=== PATIENT | female | born 1980 | race Asian ===

== ENCOUNTER 2023-03-15 07:59 | Outpatient (CLI) | payer OTHER ==
[2023-03-15 12:29] LABS: BASOPHILS # (AUTO) 0.1 10^3/uL (0.0-0.1); EOSINOPHILS # (AUTO) 0.1 10^3/uL (0.0-0.7); EOSINOPHILS % (AUTO) 1.9 %; HGB - HEMOGLOBIN 13.6 g/dL (12.0-16.0); LYMPHOCYTES % (AUTO) 38.7 %; MEAN CORPUSCULAR HEMOGLOBIN 30.4 pg (27.0-31.0); MEAN CORPUSCULAR HGB CONC 33.2 g/dL (32.0-36.0); MEAN CORPUSCULAR VOLUME 91.7 fL (81.0-99.0); MEAN PLATELET VOLUME 12.2 fL (7.9-10.8); MONOCYTES # (AUTO) 0.5 10^3/uL (0.0-1.0); MONOCYTES % (AUTO) 9.1 %; NEUTROPHILS # (AUTO) 2.5 10^3/uL (1.5-6.6); NEUTROPHILS % (AUTO) 49.1 %; PLT - PLATELET COUNT 195 10^3/uL (130-450); RED BLOOD COUNT 4.47 10^6/uL (4.20-5.40); RED CELL DISTRIBUTION WIDTH 12.7 % (12.0-15.0); WHITE BLOOD COUNT 5.1 x10^3/uL (4.8-10.8)
[2023-03-15 12:59] LABS: THYROID STIMULATING HORMONE 2.51 uIU/mL (0.34-5.60)
[2023-03-15 13:04] LABS: ALBUMIN 4.2 g/dL (3.2-5.5); ALBUMIN/GLOBULIN RATIO 1.4 (1.0-2.2); BILIRUBIN,TOTAL 0.7 mg/dL (0.2-1.0); CALCIUM 8.9 mg/dL (8.5-10.3); CREATININE 0.8 mg/dL (0.4-1.0); POTASSIUM 4.1 mmol/L (3.5-5.0); TOTAL PROTEIN 7.2 g/dL (6.7-8.2)
[2023-03-15 13:06] LABS: FERRITIN 59.6 ng/mL (11.0-306.8)
== END 2023-03-15 08:00 | disposition home or self-care (01) ==
LOC: LAB.N 07:59
PROVIDERS: ATTEND Physician Assistant
DX: Z00.00 Encounter for general adult medical examination without abnormal findings (principal); K13.0 Diseases of lips
CPT/HCPCS: 36415; 80053; 82607; 82728; 83540; 84443; 84466; 85025

== ENCOUNTER 2023-10-01 18:45 | Emergency (ER) | payer OTHER ==
[2023-10-01 19:02] VITALS: O2SAT 100
--- NOTE | 2023-10-01 20:19 | ED Physician Documentation ---
History of Present Illness - Stated complaint Stated Complaint: SOA,CHEST PX - Chief complaint Chief Complaint: Resp - Additonal information Additional information: 43-year-old female presents emergency department for evaluation of cough sore throat bilateral ear pain. Patient states 2 weeks ago she tested positive for COVID-19. She thought she was getting better until over the weekend she has developed new cough with a sore throat. Reports dark brown phlegm. She also reports that she wakes up in the middle of the night and feels her heart racing. Her has reported that she has been snoring. Patient has no history of hypertension or diabetes. No exertional chest pain or chest discomfort. She does have a history of a provoked DVT in the right leg after knee surgery and air travel. Not currently anticoagulated. Review of Systems Constitutional: denies: Fever Ears: reports: Ear pain Nose: reports: Congestion Throat: reports: Sore throat Cardiac: reports: Chest pain / pressure Respiratory: reports: Cough. 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 : None HEENT: None Psych: None Musculoskeletal: None Derm: None - Past Surgical History Past Surgical History: Yes - Present Medications Home Medications: Ambulatory Orders Medication Instructions Recorded Confirmed No Known Home Medications 10/01/23 10/01/23 - Allergies Allergies/Adverse Reactions: Allergies Allergy/AdvReac Type Severity Reaction Status Date / Time No Known Drug Allergies Allergy Verified 10/01/23 18:50 - Social History Does the pt smoke?: No Smoking Status: Never smoker Does the pt drink ETOH?: Yes Does the pt have substance abuse?: No - Immunizations Immunizations are current?: Yes PD ED PE NORMAL - General General: Alert and oriented X 3, No acute distress, Well developed/nourished - HEENT HEENT: Atraumatic, Ears normal, Moist mucous membranes, Pharynx benign (No posterior oropharynx erythema or exudate. Uvula is midline. No soft palate asymmetry or swelling. Normal phonation normal swallow. No trismus.) - Neck Neck: Supple, no meningeal sign - Cardiac Cardiac: RRR, No murmur - Respiratory Respiratory: No respiratory distress, Clear bilaterally - Abdomen Abdomen: Normal bowel sounds, Soft, Non tender, Non distended - Derm Derm: Normal color, Warm and dry, No rash - Extremities Extremities: No deformity Results - Vitals Vitals: Vital Signs - 24 hr 10/01/23 18:53 Temperature 36.8 C Heart Rate 75 Respiratory 18 Rate Blood Pressure 121/79 O2 Saturation 100 Oxygen O2 Source Room air - EKG (time done) 1900 EKG releavant findings:: EKG personally interpreted by author of this note. Relevant findings are: Rate: Rate (enter#) (65) Rhythm: NSR [place]: Normal Intervals: Normal SC. No: Prolonged QT QRS: Normal Ischemia: Normal ST segments Compare to prior EKG: Old EKG unavailable Computer interpretation: Agree with computer - Labs Labs: Laboratory Tests 10/01/23 20:14 Group A Strep Rapid Negative - Rads (name of study) cxr Relevant Findings:: Final report received (No acute cardiopulmonary process.) PD Medical Decision Making - ED course Complexity details: reviewed results, d/w patient ED course: 43-year-old female presents emergency department for evaluation of new onset sore throat and bilateral ear pain. This follows COVID infection about 2 weeks ago. She stated over the course the time her cough is not fully resolved and she has some dark brown sputum. She also reports that at night she wakes up with a racing heart and chest pressure and palpitations. She is mostly concerned that she could have pneumonia or an inner ear infection. On presentation the emergency department she is alert very well-appearing. Unremarkable vitals. No hypoxia. 2 view chest x-ray is interpreted by the radiologist shows no findings of pneumonia, pneumothorax or pleural effusion. Her ENT exam was also benign without any findings suggest acute otitis media or strep. A rapid strep test was negative. I am clinically I suspect that she has a superimposed secondary viral infection after her recent COVID infection. I have encouraged routine conservative management at home. Given an unremarkable twelve-lead EKG and several weeks of symptoms I do not feel that the history and exam is consistent with ACS. Though she has a history of a DVT in the right leg that was provoked after knee injury and an air flight, by Wells criteria she is considered low risk for PE. At this time patient is feeling comfortable with discharge home given that conservative care measures di scussed. We discussed the usual emergent return precautions. Departure - Departure Disposition: Home, Self Care Clinical Impression: Sore throat, Pressure in chest Ear pain Qualifiers: Laterality: bilateral Qualified Code(s): H92.03 - Otalgia, bilateral Cough Qualifiers: Cough type: acute Qualified Code(s): R05.1 - Acute cough Condition: Stable Record reviewed to determine appropriate education?: Yes Comments: You are seen today in the emergency department because you have developed a new sore throat and pain in both your ears. You have also had persistent cough and some pressure in your chest especially at night. You wake up coughing and have a rapid heart rate. Your chest x-ray today did not show any findings to suggest pneumonia. The exam of your throat and ears also showed no signs of infection. Your rapid strep testing was negative. The twelve-lead EKG that was completed on you today also was entirely normal. It is most likely that you have a viral upper respiratory infection causing the new sore throat and ear pain. In general I recommend that you take ibuprofen 600 mg with food for the discomfort. Stay well-hydrated. I do not feel he would benefit from antibiotics given the normal chest x-ray. If at any point you feel that your symptoms are worsening, you develop new fevers, have bright red bloody sputum or any fainting episodes and please return to the ER for repeat evaluation. Forms: PCP List
--- NOTE | 2023-10-01 20:20 | XRAY Report ---
PROCEDURE: Chest 2 View X-Ray INDICATIONS: SOA/cough TECHNIQUE: 2 views of the chest were acquired. COMPARISON: None. FINDINGS: Surgical changes and devices: None. Lungs and pleura: No pleural effusions or pneumothorax. Lungs are clear. Mediastinum: Mediastinal contours appear normal. Heart size is normal. Bones and chest wall: No suspicious bony lesions. Overlying soft tissues appear unremarkable. IMPRESSION: No acute cardiopulmonary process. Reviewed by: Everardo Lennon on 10/01/2023 8:18 PM [facility] Approved by: Everardo Lennon on 10/01/2023 8:18 PM [facility] Station ID: [id number]
[2023-10-01 20:36] LABS: RAPID STREP SCREEN Negative (Negative)
[2023-10-01 21:14] VITALS: BP 120/72
== END 2023-10-01 21:09 | disposition home or self-care (01) ==
LOC: ED 18:45
DX: J02.9 Acute pharyngitis, unspecified (principal); R07.89 Other chest pain; H92.03 Otalgia, bilateral; R05.1 Acute cough; R00.0 Tachycardia, unspecified
CPT/HCPCS: 87070; 87430; 93005; 99283; 99284

== ENCOUNTER 2024-02-24 07:32 | Outpatient (CLI) | payer OTHER ==
[2024-02-24 12:14] LABS: BASOPHILS # (AUTO) 0.1 10^3/uL (0.0-0.1); BASOPHILS % (AUTO) 1.2 %; EOSINOPHILS # (AUTO) 0.1 10^3/uL (0.0-0.7); EOSINOPHILS % (AUTO) 2.1 %; HCT - HEMATOCRIT 40.8 % (37.0-47.0); HGB - HEMOGLOBIN 13.6 g/dL (12.0-16.0); LYMPHOCYTES % (AUTO) 37.9 %; MEAN CORPUSCULAR HEMOGLOBIN 31.1 pg (27.0-31.0); MEAN CORPUSCULAR HGB CONC 33.3 g/dL (32.0-36.0); MEAN CORPUSCULAR VOLUME 93.2 fL (81.0-99.0); MEAN PLATELET VOLUME 11.7 fL (7.9-10.8); MONOCYTES # (AUTO) 0.6 10^3/uL (0.0-1.0); MONOCYTES % (AUTO) 10.6 %; NEUTROPHILS # (AUTO) 2.5 10^3/uL (1.5-6.6); NEUTROPHILS % (AUTO) 47.8 %; PLT - PLATELET COUNT 204 10^3/uL (130-450); RED BLOOD COUNT 4.38 10^6/uL (4.20-5.40); WHITE BLOOD COUNT 5.2 x10^3/uL (4.8-10.8)
[2024-02-24 12:29] LABS: ALBUMIN 4.4 g/dL (3.2-5.5); ALBUMIN/GLOBULIN RATIO 1.4 (1.0-2.2); ALKALINE PHOSPHATASE 36 IU/L (42-121); ALT ALANINE AMINOTRANSFERASE 11 IU/L (10-60); AST ASPARTATE AMINOTRANSFERASE 17 IU/L (10-42); BILIRUBIN,TOTAL 0.8 mg/dL (0.2-1.0); BUN - BLOOD UREA NITROGEN 16 mg/dL (6-20); CALCIUM 9.6 mg/dL (8.5-10.3); CARBON DIOXIDE - CO2 28 mmol/L (21-32); CHLORIDE 103 mmol/L (101-111); CHOL/HDL RATIO 2.3 (<4.4); CHOLESTEROL 204 mg/dL; CREATININE 0.9 mg/dL (0.6-1.3); GFR - MDRD 68 (>89); GLUCOSE 85 mg/dL (74-104); HDL CHOLESTEROL 87 mg/dL; LDL CHOLESTEROL,CALCULATED 99 mg/dL; LDL/HDL RATIO 1.1 (<4.4); POTASSIUM 3.6 mmol/L (3.5-4.5); SODIUM 138 mmol/L (135-145); TOTAL PROTEIN 7.5 g/dL (6.4-8.9); TRIGLYCERIDES 88 mg/dL (48-352); VLDL CHOLESTEROL 18 mg/dL
== END 2024-02-24 07:33 | disposition home or self-care (01) ==
LOC: LAB.N 07:32
PROVIDERS: ATTEND Physician Assistant
DX: Z00.00 Encounter for general adult medical examination without abnormal findings (principal); E53.8 Deficiency of other specified B group vitamins; Z13.220 Encounter for screening for lipoid disorders; Z86.2 Personal history of diseases of the blood and blood-forming organs and certain disorders involving the immune mechanism
CPT/HCPCS: 36415; 80053; 80061; 82607; 82746; 83721; 85025

== ENCOUNTER 2024-04-20 08:00 | Outpatient (CLI) | payer OTHER ==
[2024-04-20 22:28] LABS: CHLAMYDIA TRACHOMATIS DNA NEGATIVE (NEGATIVE); NEISSERIA GONORRHOEAE DNA NEGATIVE (NEGATIVE)
[2024-04-21 00:47] LABS: BACTERIAL VAGINOSIS DNA POSITIVE (NEGATIVE); CANDIDA GLABRATA DNA NEGATIVE (NEGATIVE); CANDIDA GROUP DNA NEGATIVE (NEGATIVE); CANDIDA KRUSEI DNA NEGATIVE (NEGATIVE); TRICHOMONAS VAGINALIS DNA NEGATIVE (NEGATIVE)
== END 2024-04-20 23:59 | disposition home or self-care (01) ==
LOC: LAB.WC 08:00
PROVIDERS: ATTEND Obstetrics & Gynecology
DX: N89.8 Other specified noninflammatory disorders of vagina (principal)
CPT/HCPCS: 81514; 87491; 87591; 87661

== ENCOUNTER 2024-05-03 09:08 | Outpatient (CLI) | payer OTHER ==
--- NOTE | 2024-05-04 07:03 | Ultrasound Report ---
PROCEDURE: Pelvic w/Transvaginal INDICATIONS: DYSPAREUNIA, UNSPECIFIED TECHNIQUE: Real-time scanning was performed of the pelvic organs, with image documentation. Additional endovagi nal scanning was necessary due to incomplete visualization of the adnexal and endometrial structures by transabdominal scanning. COMPARISON: None. FINDINGS: Uterus: 6.7 x 3.1 x 4.1 cm. The endometrium measures 3 mm, within normal limits. IUD in place in the endometrium, with the upper aspect 0.5 cm from the fundus. Retroverted positioning. Ovaries: Nonenlarged right ovary. The left ovary measures 12 cc. There is a follicular cyst measuring 1.9 cm. Other: No pathologic free fluid. IMPRESSION: No significant or acute sonographic abnormality in the pelvis. Appropriate IUD positioning. Reviewed by: Leandro Gunderson MD on 05/04/2024 7:01 AM PDT Approved by: Leandro Gunderson MD on 05/04/2024 7:01 AM PDT Station ID: [id number]
== END 2024-05-03 09:09 | disposition home or self-care (01) ==
LOC: DI 09:08
PROVIDERS: ATTEND Obstetrics & Gynecology
DX: N94.10 Unspecified dyspareunia (principal); Z97.5 Presence of (intrauterine) contraceptive device